=== PATIENT | female | born 1990 | race Caucasian/White ===

== ENCOUNTER → 2017-05-07 | Emergency (ER) | payer SELFPAY ==
[~2017-05-07] MED LIST: Fentanyl 100 MCG/2 ML VIAL ONE; Ondansetron HCl/PF 4 MG/2 ML Vial ONE; Potassium Chloride 20 MEQ TAB ONE
[2017-05-07 22:26] LABS: Bilirubin Negative (Negative); Blood, Urine Small (Negative); Clarity Cloudy (Clear); Glucose, Urine (Dipstick) Negative (Negative); Leukocyte Negative (Negative); Nitrite Negative (Negative); Protein, Urine (Dipstick) Trace mg/dL (Neg-Trace); Urobilinogen 0.2 mg/dL (0.2-1.0)
[2017-05-07 22:39] LABS: Bacteria/HPF 2+ HPF (None Seen); Crystals/HPF 2+ AMORPH URATES HPF (Negative); Pregu Control Background? CLEAR/WHITE (CLR/WHITE); Pregu Control Bar Appear? YES (CONTROL BAR); RBC/HPF 0-3 HPF (0-3); Specific Gravity 1.029 (1.002-1.036); WBC/HPF 0-3 HPF (0-3)
[2017-05-07 22:40] LABS: #Lymphocytes 1.8 thou/uL (1.20-3.40); #Monocytes 0.5 thou/uL (0.11-0.59); #Neutrophils 8.2 thou/uL (1.40-6.50); %Basophils 0.4 % (0.0-1.0); %Eosinophils 0.4 % (0.0-10.0); %Lymphocytes 16.7 % (21.0-51.0); %Monocytes 5.1 % (0.0-10.0); %Neutrophils 77.5 % (42.0-75.0); Hemoglobin 14.7 g/dL (12.0-16.0); Mean Corpuscular HGB CONC 35.2 g/dL (32.0-36.0); Mean Corpuscular Hemoglobin 31.6 pg (27.0-31.0); Mean Corpuscular Volume 89.8 fl (81.0-99.0); Mean Platelet Volume 6.5 fL (7.4-10.4); Platelet Count 225 thou/uL (130-400); RBC Distribution Width 11.5 % (11.5-14.5); Red Blood Cell (RBC) Count 4.65 mill/uL (4.20-5.40); White Blood Cell (WBC) Count 10.6 thou/uL (4.8-10.8)
[2017-05-07 22:41] LABS: Pregnancy Test - Urine (BHCG) Negative (Negative)
[2017-05-07 22:53] LABS: ALT (SGPT) 21 U/L (8-55); AST (SGOT) 19 U/L (5-34); Albumin 4.5 g/dL (3.5-5.0); Alkaline Phosphatase 69 U/L (40-150); Anion Gap 16 mmol/L (10-20); BUN (Urea Nitrogen) 18 mg/dL (7.0-18.7); Bilirubin, Total 0.2 mg/dL (0.2-1.2); Calc. Creatinine Clearance 0 mL/min (70-130); Calcium 9.7 mg/dL (7.8-10.44); Carbon Dioxide 21 mmol/L (22-29); Chloride 105 mmol/L (98-107); Estimated GFR-MDRD 85; Globulin 3.1 g/dL (2.4-3.5); Glucose 113 mg/dL (70-105); Lipase 13 U/L (8-78); Potassium 3.2 mmol/L (3.5-5.1); Protein, Total 7.6 g/dL (6.0-8.3); Sodium 139 mmol/L (136-145)
--- NOTE | 2017-05-08 07:36 | CT ---
PRELIMINARY REPORT/[facility]/EMERGENCY AFTER HOURS PROCEDURE: EXAM: CT Abdomen and Pelvis With Intravenous Contrast CLINICAL HISTORY: 26 years old, female; Pain; Abdominal pain; Acute; Patient HX: Ruq pain TECHNIQUE: Axial computed tomography images of the abdomen and pelvis with intravenous contrast. CONTRAST: 90 mL of ISO 370 administered intravenously. COMPARISON: No relevant prior studies available. FINDINGS: Lower thorax: Dependent bibasilar atelectasis. ABDOMEN: Liver: Mild intrahepatic and extrahepatic biliary dilation. Gallbladder and bile ducts: A stone is seen in the gallbladder neck. Pancreas: Unremarkable. No mass. No ductal dilation. Spleen: Unremarkable. No splenomegaly. Adrenals: Unremarkable. No mass. Kidneys and ureters: Unremarkable. No solid mass. No hydronephrosis. Stomach and bowel: Unremarkable. No obstruction. No mucosal thickening. Appendix: Normal appendix. PELVIS: Bladder: Unremarkable. No mass. Reproductive: Cysts are seen in the left adnexa. ABDOMEN and PELVIS: Intraperitoneal space: Unremarkable. No free air. No significant fluid collection. Bones/joints: No acute fracture. No dislocation. Soft tissues: Unremarkable. Vasculature: Unremarkable. No abdominal aortic aneurysm. Lymph nodes: Unremarkable. No enlarged lymph nodes. IMPRESSION: Stone in the gallbladder neck with intrahepatic and extrahepatic biliary dilation. Thank you for allowing us to participate in the care of your patient. Dictated and Authenticated by: Nancy Guadarrama MD 05/08/2017 12:10 AM Central Time ([place] \T\ [place]) FINAL REPORT CT ABDOMEN AND PELVIS WITH CONTRAST: Date: 05/07/[address] of the abdomen and pelvis was done using IV contrast. Oral contrast was withheld by reques t. Axial slices were acquired, then coronal and sagittal reconstructions were done. The lung bases are clear, except for some dependent atelectasis. No significant pleural fluid was se en. The major finding in the upper abdomen is what appears to be a stone lodged in the neck of the gallb ladder. There is mild dilation of the intrahepatic and extrahepatic bile ducts. The liver and spleen themselves are normal in size. The pancreas, adrenal glands, kidneys, and abdominal aorta appear no rmal. The bowel shows no sign of obstruction, inflammatory change, or wall thickening. No free air or free fluid was seen in the upper abdomen. CT of the pelvis shows a 3.3 cm left adnexal cyst and possibly a smaller 2.3 cm one on the right. Th ere may be a trace of free fluid in the cul-de-sac, but it is certainly not any amount of concern. N o inflammatory changes were seen in the pelvis. No pelvic masses present. No acute findings seen in the lumbar spine. IMPRESSION: 1. Gallstone lodged in neck of gallbladder causing some dilation of the biliary system. 2. Left adnexal cyst. Possible right adnexal cyst. Findings in agreement with preliminary reading by Kalie. POS: HOME
== END ==
LOC: BURERS 21:37
DX: K80.20 Calculus of gallbladder without cholecystitis without obstruction (principal)
CPT/HCPCS: 74177; 80053; 81003; 81015; 81025; 83690; 85025; 96374; 96375; 96376; J2270; J2405; J3010